=== PATIENT | female | born 1945 | race African-American/Black ===

== ENCOUNTER 2017-09-15 11:11 | Day surgery (SDC) | payer MEDICARE ==
[~2017-09-15] VITALS: Ht 151.1 cm; Wt 72.6 kg
[2017-09-15] VITALS (7 sets, daily range): BP systolic 111–128; BP diastolic 65–76
--- NOTE | 2017-09-15 07:16 | Pre-Procedure Note/Attestation ---
Pre-Procedure Note/Attestation Complete Prior to Procedure Planned Procedure: right Procedure Narrative: removal of cataract and placement of intraocular lens right eye Indications for Procedure Pre-Operative Diagnosis: Cataract, combined, right eye Attestation I attest that I discussed the nature of the procedure; its benefits; risks and complications; and alternatives (and the risks and benefits of such alternatives ), prior to the procedure, with the patient (or the patient's legal treasury representative). I attest that, if there was a reasonable possibility of needing a blood transfusion, the patient (or the patient's legal treasury representative) was given the [facility] standardized written summary, pursuant to the [place] Blood Safety Act ([place] Health and Safety Code # 1645, as amended). I attest that I re-evaluated the patient just prior to the surgery and that there has been no change in the patient's H&P, except as documented below: Jag Hackett MD Sep 15, 2017 07:16
[2017-09-15] MEDS ORDERED: Midazolam 2mg/2ml Inj ONE (11:12)
[2017-09-15] MEDS ORDERED: Sterile Water Irrig 1000ml IRRIG ONE (11:12)
[2017-09-15] MEDS ORDERED: LR 1000ml ONE (11:12)
[2017-09-15] MEDS ORDERED: NS Irrig 1000ml ONE (11:12)
[2017-09-15] MEDS ORDERED: fentaNYL 100 mcg/2 mL IV ONE (11:12)
[2017-09-15] MEDS ORDERED: Phenylephrine 10% Opth Soln 5ml ONE (11:46)
[2017-09-15] MEDS ORDERED: Cyclopentolate 1% Opth Sol 2ml ONE (11:46)
[2017-09-15] MEDS ORDERED: Vigamox Opth Soln 3ml ONE (11:46)
[2017-09-15] MEDS ORDERED: Akten 3.5% 1ml Btl ONE (11:47)
[2017-09-15] MEDS ORDERED: Tropicamide 1% Opth 15ml Soln ONE (11:47)
[2017-09-15] MEDS: Akten 3.5% 1ml Btl RIGHT EYE SCH ×3 (12:03→12:35)
[2017-09-15] MEDS: Tropicamide 1% Opth 15ml Soln RIGHT EYE SCH ×3 (12:04→12:35)
[2017-09-15] MEDS: Cyclopentolate 1% Opth Sol 2ml RIGHT EYE SCH ×3 (12:04→12:35)
[2017-09-15] MEDS: Phenylephrine 10% Opth Soln 5ml RIGHT EYE SCH ×3 (12:04→12:36)
[2017-09-15] MEDS: Vigamox Opth Soln 3ml RIGHT EYE SCH ×3 (12:04→12:36)
[2017-09-15] MEDS ORDERED: ATORVASTATIN CA20 MG ORAL (12:34)
[2017-09-15] MEDS ORDERED: METFORMIN HCL1000 M1 ORAL (12:34)
[2017-09-15] MEDS ORDERED: ASPIR 8181 MG ORAL (12:34)
[2017-09-15] MEDS ORDERED: BENAZEPRIL-HCT1 EACH ORAL (12:47)
[2017-09-15] MEDS ORDERED: VITAMIN D400 INTLU ORAL (12:47)
[2017-09-15] MEDS ORDERED: MAGNESIUM250 M2 PO (12:47)
--- NOTE | 2017-09-15 14:38 | Discharge Instructions ---
Discharge Instructions Discharge Instructions Follow Up Orders Wear eye shield at all times except to place eye drops Continue preop eye drops Followup tomorrow in Dr Hackett's office For Congestive Heart Failure Reminder Report to your physician any weight gain of 5 pounds or more in one week. Jag Hackett MD Sep 15, 2017 14:37
--- NOTE | 2017-09-15 14:51 | Brief Operative Note ---
Immediate Post Operative Note Operative Note Pre-op Diagnosis: Cataract, combined, right eye Procedure: Phaco Pc IOL OD Post-op Diagnosis: same as pre-op Surgeon: Prakash Hackett MD Additional Surgeons: none Anesthesiologist: Dr Qiu Anesthesia: local, MAC Specimen: none Complications: none Fluids: as noted Implant(s) used?: Yes - [employer] tecnis PCB00 21.5 Jag Hackett MD Sep 15, 2017 14:51
[2017-09-15] MEDS ORDERED: BSS 500ml btl ONE (15:18)
[2017-09-15] MEDS ORDERED: EPINEPHrine 1mg/1ml Amp ONE (15:19)
[2017-09-15] MEDS ORDERED: Lidocaine 2% MPF 5ml Vial INJ ONE (15:19)
[2017-09-15] MEDS ORDERED: Sodium Hyaluronate 10 mg/ml 0.85ml ONE (15:19)
[2017-09-15] MEDS ORDERED: BSS 15ml BTL ONE (15:19)
[2017-09-15] MEDS ORDERED: Pred Forte 1% Opth Susp 1ml ONE (15:19)
[2017-09-15] MEDS ORDERED: Maxitrol Opth Oint 3.5gm ONE (15:19)
[2017-09-15] MEDS ORDERED: Lidocaine 1% MPF 10mg/ml 5ml ONE (15:19)
[2017-09-15] MEDS ORDERED: Tetracaine 0.5% Opth 4ml Soln ONE (15:19)
[2017-09-15] MEDS ORDERED: Dexamethasone 4mg/ml vial ONE (15:19)
[2017-09-15] MEDS ORDERED: Povidone-Iodine 5% opth solution ONE (15:19)
--- NOTE | 2017-09-15 23:01 | Operative Note - Dictated ---
DATE OF OPERATION: 09/15/2017 SURGEON: Jag Hackett M.D. MAINTENANCE SHOP CLERK SURGEON: None. ANESTHESIOLOGIST: . ANESTHESIA: Local/standby/monitored anesthesia care. PREOPERATIVE DIAGNOSIS: Combined cataract, right eye. POSTOPERATIVE DIAGNOSIS: Combined cataract, right eye. PROCEDURE: 1. Phacoemulsification of cataract, right eye. 2. Placement of posterior chamber intraocular lens, right eye (model Lopez, Tecnis PCB00 21.5). SPECIMENS: None. COMPLICATIONS: None. INDICATIONS FOR SURGERY: The patient has had the painless progressive decrease in visual acuity in the right eye secondary to cataract. The patient understands the risks of surgery including infection, bleeding, need for further surgery, loss of vision, no improvement in vision, loss of the eye, loss of life, glaucoma, and retinal detachment, understands these risks and elects to proceed with surgery. FINDINGS: The patient had a +2 to 3 nuclear sclerotic cataract, but also a +2 to 3 anterior subcapsular cataract and a +1 cortical cataract. OPERATIVE NOTE: After informed consent was obtained, the patient was brought into the operating room and placed in the supine position. Cardiac and respiratory monitors were attached. A time-out was performed and all criteria were met and everyone in the room agreed. The right eye was then draped and prepped in a sterile manner for ocular surgery. A lid speculum was placed in the eye. The patient was moving her eye despite sedation, so a 6-0 silk suture was placed through the superior rectus muscle as a stay suture. A 1% lidocaine preservative-free was then injected at a the 9 o'clock limbus. A conjunctiva peritomy from approximately 8:30 to 9:30 was made and dissected posteriorly. Hemostasis was maintained with bipolar cautery and a 2.6 mm limbal incision was made centered approximately 3 o'clock and dissected anteriorly. Paracentesis was made at approximately 12 o'clock and Shugarcaine was injected into the anterior chamber followed by Healon. The anterior chamber was then entered using a 2.6 mm keratome through the limbal incision. An anterior capsulorrhexis was then performed. Hydrodissection and hydrodelineation of the lens was then performed. The lens was then phacoemulsified using divide and conquer four-quadrant technique. Residual cortical material was then aspirated. Healon was injected into the anterior chamber and capsular bag. The tip of the preloaded cartridge was placed through the limbal incision. The lens was injected into the capsular bag and centered nicely with a Sinskey hook. Both the optic and both haptics were visualized to be in the capsular bag and the lens was in the 180 degree meridian. Healon was then aspirated from the anterior chamber and capsular bag. One 10-0 nylon interrupted suture was then placed through the limbal incision and the knot was rotated and buried. Care was taken during the entire procedure not to touch the endothelium. The paracentesis and limbal wound were hydrated closed. The conjunctiva was then closed with forceps cautery. The lid speculum and drapes were removed from the eye and one drop of Betadine was placed in the eye along with Vigamox, one drop of moxifloxacin, and Pred Forte and then Maxitrol ointment and a shield. The patient tolerated the procedure well and left the operating room in awake, alert in stable condition. Jag Hackett M.D. DR: PIERRE JOB#: [id number] CC:
== END 2017-09-15 15:35 | disposition home or self-care (01) ==
LOC: SUR 11:11
DX: H25.11 Age-related nuclear cataract, right eye (principal); H25.031 Anterior subcapsular polar age-related cataract, right eye; H25.011 Cortical age-related cataract, right eye; I10 Essential (primary) hypertension; E78.5 Hyperlipidemia, unspecified; Z91.012 Allergy to eggs; Z91.011 Allergy to milk products; E11.9 Type 2 diabetes mellitus without complications; M19.90 Unspecified osteoarthritis, unspecified site
CPT/HCPCS: 66984; 82962; J0171; J1100; J2250; J3010; J7120; V2632; 94003; 94150

== ENCOUNTER 2017-12-22 09:06 | Day surgery (SDC) | payer MEDICARE ==
--- NOTE | 2017-12-21 23:53 | Pre-Procedure Note/Attestation ---
Pre-Procedure Note/Attestation Complete Prior to Procedure Planned Procedure: left - Removal of cataract and placement of intraocular lens , left eye Procedure Narrative: Removal of cataract and placement of intraocular lens, left eye Indications for Procedure Pre-Operative Diagnosis: Combined cataract, left eye Attestation I attest that I discussed the nature of the procedure; its benefits; risks and complications; and alternatives (and the risks and benefits of such alternatives ), prior to the procedure, with the patient (or the patient's legal front office representative). I attest that, if there was a reasonable possibility of needing a blood transfusion, the patient (or the patient's legal front office representative) was given the [place] [facility] standardized written summary, pursuant to the [place] Blood Safety Act ([place] Health and Safety Code # 1645, as amended). I attest that I re-evaluated the patient just prior to the surgery and that there has been no change in the patient's H&P, except as documented below: Jag Hackett MD Dec 21, 2017 23:53
[2017-12-22] VITALS (9 sets, daily range): BP systolic 121–143; BP diastolic 74–78
[~2017-12-22] VITALS: Ht 151.1 cm; Wt 73.9 kg
[~2017-12-22 09:06] MED LIST: ASPIR 8181 MG ORAL; ATORVASTATIN CA20 MG ORAL; BENAZEPRIL-HCT1 EACH ORAL; MAGNESIUM250 M2 PO; METFORMIN HCL1000 M1 ORAL; Pred Forte 1% Opth Susp 1ml LEFT EYE ONE; VITAMIN D400 INTLU ORAL
[2017-12-22] MEDS ORDERED: Pred Forte 1% Opth Susp 1ml ONE ×2 (09:38→10:14)
[2017-12-22] MEDS ORDERED: Akten 3.5% 1ml Btl ONE (09:38)
[2017-12-22] MEDS ORDERED: Cyclopentolate 1% Opth Sol 2ml ONE (09:38)
[2017-12-22] MEDS ORDERED: Ciprofloxacin Opth Soln 2.5ml ONE (09:38)
[2017-12-22] MEDS ORDERED: Phenylephrine 10% Opth Soln 5ml ONE (09:38)
[2017-12-22] MEDS ORDERED: Tropicamide 1% Opth 15ml Soln ONE (09:38)
[2017-12-22] MEDS: Ciprofloxacin Opth Soln 2.5ml LEFT EYE SCH ×3 (09:56→10:33)
[2017-12-22] MEDS: Akten 3.5% 1ml Btl LEFT EYE SCH ×3 (09:56→10:32)
[2017-12-22] MEDS: Tropicamide 1% Opth 15ml Soln LEFT EYE SCH ×3 (09:56→10:32)
[2017-12-22] MEDS: Cyclopentolate 1% Opth Sol 2ml LEFT EYE SCH ×3 (09:58→10:32)
[2017-12-22] MEDS: Phenylephrine 10% Opth Soln 5ml LEFT EYE SCH ×3 (09:59→10:32)
[2017-12-22] MEDS ORDERED: EPINEPHrine 1mg/1ml Amp ONE ×3 (10:13→10:35)
[2017-12-22] MEDS ORDERED: Lidocaine 4% Amp ONE (10:13)
[2017-12-22] MEDS ORDERED: Fluorescein Strips ONE (10:14)
[2017-12-22] MEDS ORDERED: Dexamethasone 4mg/ml vial ONE (10:14)
[2017-12-22] MEDS ORDERED: Lidocaine 1% MPF 10mg/ml 5ml ONE (10:14)
[2017-12-22] MEDS ORDERED: Timolol 0.5% Op Soln 2.5ml ONE (10:14)
[2017-12-22] MEDS ORDERED: Maxitrol Opth Oint 3.5gm ONE (10:14)
[2017-12-22] MEDS ORDERED: Carbachol 0.01% Op Soln 1.5ml vial ONE (10:14)
[2017-12-22] MEDS ORDERED: BSS 500ml btl ONE ×2 (10:15→10:19)
[2017-12-22] MEDS ORDERED: Bupivacaine 0.75% 30ml vial INJ ONE (10:16)
[2017-12-22] MEDS ORDERED: Povidone-Iodine 5% opth solution ONE (10:16)
[2017-12-22] MEDS ORDERED: Sodium Hyaluronate 10 mg/ml 0.85ml ONE ×2 (10:16→10:18)
[2017-12-22] MEDS ORDERED: BSS 15ml BTL ONE ×2 (10:16→10:18)
[2017-12-22] MEDS ORDERED: Tetracaine 0.5% Opth 4ml Soln ONE (10:16)
[2017-12-22 10:43] LABS: BASOPHILS % (AUTO) 0.7 % (0.0-2.0); EOSINOPHILS % (AUTO) 4.4 % (0.0-3.0); HEMATOCRIT 34.1 % (37.0-47.0); HEMOGLOBIN 10.9 G/DL (12.0-16.0); LYMPHOCYTES % (AUTO) 23.3 % (20.0-45.0); MEAN CORPUSCULAR VOLUME 78 FL (80-99); NEUTROPHILS % (AUTO) 60.6 % (45.0-75.0); PLATELET COUNT 331 K/UL (150-450); RED BLOOD COUNT 4.37 M/UL (4.20-5.40); RED CELL DISTRIBUTION WIDTH 14.7 % (11.6-14.8); WHITE BLOOD COUNT 5.9 K/UL (4.8-10.8)
[2017-12-22 10:49] LABS: ANION GAP 8 mmol/L (5-15); BLOOD UREA NITROGEN 12 mg/dL (7-18); CALCIUM 9.6 MG/DL (8.5-10.1); CARBON DIOXIDE 28 MMOL/L (21-32); CHLORIDE 105 MMOL/L (98-107); CREATININE 0.7 MG/DL (0.55-1.30); POTASSIUM 3.4 MMOL/L (3.5-5.1); SODIUM 141 MMOL/L (136-145)
[2017-12-22] MEDS ORDERED: fentaNYL 100 mcg/2 mL IV ONE (11:20)
[2017-12-22] MEDS ORDERED: Midazolam 2mg/2ml Inj ONE (11:20)
[2017-12-22] MEDS ORDERED: Propofol 200mg/20ml IV ONE (11:30)
[2017-12-22] MEDS ORDERED: NS Irrig 1000ml ONE (11:30)
[2017-12-22] MEDS ORDERED: Sterile Water Irrig 1000ml IRRIG ONE (11:30)
[2017-12-22] MEDS ORDERED: LR 1000ml ONE (11:30)
[2017-12-22] MEDS ORDERED: LR 1000ml 1,000 ML IVLG SCH (12:10)
--- NOTE | 2017-12-22 12:10 | Anethesia Preoperative Eval ---
Anesthesia Pre-op PMH/ROS General Date of Evaluation: Dec 22, 2017 Time of Evaluation: 11:20 Anesthesiologist: Radha ASA Score: ASA 3 Mallampati Score Class I : Soft palate, uvula, fauces, pillars visible Class II: Soft palate, uvula, fauces visible Class III: Soft palate, base of uvula visible Class IV: Only hard plate visible Mallampati Classification: Class II Surgeon: Roxann Diagnosis: L eye cataract Surgical Procedure: L eye cataract extraction Anesthesia History: none Social History: smoking - h/o Family History: no anesthesia problems Allergies: Coded Allergies: EGG (Verified Allergy, Unknown, 09/15/17) MILK (Verified Allergy, Unknown, 09/15/17) Medications: see eMAR Past Medical History Cardiovascular: Reports: HTN; Denies: CAD, [place], valve dz, arrhythmia, other Pulmonary: Denies: asthma, COPD, RYNE, other Gastrointestinal/Genitourinary: Reports: GERD - mild; Denies: CRI, ESRD, other Neurologic/Psychiatric: Denies: dementia, CVA, depression/anxiety, TIA, other Endocrine: Reports: DM - stable on pills; Denies: hypothyroidism, steroids, other HEENT: Reports: cataract (L), cataract (R); Denies: glaucoma, [place] (L), [place] (R), other Hematology/Immune: Denies: anemia, DVT, bleeding disorder, other Musculoskeletal/Integumentary: Reports: DJD; Denies: OA, RA, DDD, edema, other Other: other - overweight PMH Narrative: as above PSxH Narrative: R eye cataract Anesthesia Pre-op Phys. Exam Physician Exam Last Vital Signs Date Time Temp Pulse Resp B/P (MAP) Pulse Ox O2 Delivery O2 Flow Rate FiO2 12/22/17 10:54 98.1 62 20 136/74 99 Room Air 98.1 Constitutional: NAD Neurologic: CN 2-12 intact Cardiovascular: RRR, no M/R/G Respiratory: CTA Gastrointestinal: S/NT/ND Airway Exam Mallampati Score: Class II MO: full Neck: stiff ROM: limited Teeth: missing Dentures: no upper, no lower Anesthesia Pre-op A/P Labs Hematology Test 12/22/17 10:25 White Blood Count 5.9 K/UL (4.8-10.8) Red Blood Count 4.37 M/UL (4.20-5.40) Hemoglobin 10.9 G/DL (12.0-16.0) L Hematocrit 34.1 % (37.0-47.0) L Mean Corpuscular Volume 78 FL (80-99) L Mean Corpuscular Hemoglobin 24.9 PG (27.0-31.0) L Mean Corpuscular Hemoglobin Concent 31.9 G/DL (32.0-36.0) L Red Cell Distribution Width 14.7 % (11.6-14.8) Platelet Count 331 K/UL (150-450) Mean Platelet Volume 6.4 FL (6.5-10.1) L Neutrophils (%) (Auto) 60.6 % (45.0-75.0) Lymphocytes (%) (Auto) 23.3 % (20.0-45.0) Monocytes (%) (Auto) 11.0 % (1.0-10.0) H Eosinophils (%) (Auto) 4.4 % (0.0-3.0) H Basophils (%) (Auto) 0.7 % (0.0-2.0) Chemistry Test 12/22/17 10:25 Sodium Level 141 MMOL/L (136-145) Potassium Level 3.4 MMOL/L (3.5-5.1) L Chloride Level 105 MMOL/L (98-107) Carbon Dioxide Level 28 MMOL/L (21-32) Anion Gap 8 mmol/L (5-15) Blood Urea Nitrogen 12 mg/dL (7-18) Creatinine 0.7 MG/DL (0.55-1.30) Estimat Glomerular Filtration Rate > 60 mL/min (>60) Glucose Level 98 MG/DL (74-106) Calcium Level 9.6 MG/DL (8.5-10.1) Studies Pre-op Studies: EKG - NSR Risk Assessment & Plan Assessment: ASA 3 Plan: MAC Status Change Before Surgery: No Pre-Antibiotics Drug: none Thom Garcia MD Dec 22, 2017 12:10
[2017-12-22] MEDS ORDERED: fentaNYL 100 mcg/2 mL IV PRN (12:15)
[2017-12-22] MEDS ORDERED: DiphenhydrAMINE 50mg/ml Inj IVP PRN (12:15)
--- NOTE | 2017-12-22 12:40 | Discharge Instructions ---
Discharge Instructions Discharge Instructions Follow Up Orders Leave shield on at all times except to place eye drops Continue pre op eye drops Followup in Dr Hackett's office tomorrow For Congestive Heart Failure Reminder Report to your physician any weight gain of 5 pounds or more in one week. Jag Hackett MD Dec 22, 2017 12:40
--- NOTE | 2017-12-22 12:43 | Brief Operative Note ---
Immediate Post Operative Note Operative Note Pre-op Diagnosis: Combined cataract, left eye Procedure: Phaco PC IOL, OS Post-op Diagnosis: same as pre-op Surgeon: Prakash Hackett MD Anesthesiologist: Dr Garcia Anesthesia: local, MAC Specimen: none Complications: none Fluids: as noted in chart Implant(s) used?: Yes - tecnis zcb00 22.0 Jag Hackett MD Dec 22, 2017 12:43
--- NOTE | 2017-12-22 12:43 | Immediate Post-Op Evaluation ---
Immediate Post-Op Evalulation Immediate Post-Op Evalulation Procedure: L eye cataract extraction with IOL Date of Evaluation: Dec 22, 2017 Time of Evaluation: 12:42 IV Fluids: 300 Blood Products: none Estimated Blood Loss: none Urinary Output: none Blood Pressure Systolic: 159 Blood Pressure Diastolic: 75 Pulse Rate: 62 Respiratory Rate: 20 O2 Sat by Pulse Oximetry: 98 Temperature (Fahrenheit): 97.5 Pain Score (1-10): 2 Nausea: No Vomiting: No Complications none Patient Status: awake, patent, none Hydration Status: adequate Thom Garcia MD Dec 22, 2017 12:43
--- NOTE | 2017-12-22 13:38 | 48 Hour Post Anesthesia Eval ---
Post Anesthesia Evaluation Procedure: L eye cataract extraction with IOL Date of Evaluation: Dec 22, 2017 Time of Evaluation: 13:37 Blood Pressure Systolic: 132 0: 75 Pulse Rate: 64 Respiratory Rate: 20 Temperature (Fahrenheit): 97.6 O2 Sat by Pulse Oximetry: 98 Airway: patent Nausea: No Vomiting: No Pain Intensity: 1 Hydration Status: adequate Cardiopulmonary Status: stable Mental Status/LOC: patient returned to baseline Follow-up Care/Observations: n/a Post-Anesthesia Complications: none Follow-up care needed: ready to discharge Thom Garcia MD Dec 22, 2017 13:38
--- NOTE | 2017-12-22 17:16 | Operative Note - Dictated ---
DATE OF OPERATION: 12/22/2017 SURGEON: Jag Hackett M.D. TIRE MAINTENANCE TECHNICIAN SURGEON: None. ANESTHESIOLOGIST: Thom Garcia M.D. ANESTHESIA: Local/standby/monitored anesthesia care. PREOPERATIVE DIAGNOSIS: Cataract, combined, left eye. POSTOPERATIVE DIAGNOSIS: Cataract, combined, left eye. PROCEDURES: 1. Phacoemulsification of cataract, left eye. 2. Placement of posterior chamber intraocular lens, left eye (model Lopez Tecnis [id number], power 22.0). SPECIMENS: None. COMPLICATIONS: None. INDICATIONS FOR SURGERY: The patient has had the painless progressive decrease in visual acuity in left eye secondary to cataract. The patient understands the risks of surgery including infection, bleeding, need for further surgery, loss of vision, no improvement in vision, loss of the eye, loss of life, glaucoma, retinal detachment, and understands these risks and elects to proceed with surgery. FINDINGS: The patient had a +2 nuclear sclerotic cataract and a +2 to +3 cortical cataract that was also anterior subcapsular. OPERATIVE NOTE: After informed consent was obtained, the patient was brought into the operating room and placed in supine position. Cardiac and respiratory monitors were attached. A time-out was performed and all criteria were met and everyone in the room agreed. The left eye was then draped and prepped in a sterile manner for ocular surgery. A lid speculum was placed in the eye. A 1% lidocaine preservative-free was injected at the approximate 2 o'clock limbus. A conjunctiva peritomy from approximately 2 o'clock to 3 o'clock was made and dissected posteriorly. Hemostasis was maintained with bipolar cautery. A 2.6 mm limbal incision was made centered approximately 2:30 and dissected anteriorly. Paracentesis was made at approximately 5:30 and Shugarcaine was injected into the anterior chamber followed by Healon. The anterior chamber was then entered using a 2.6 mm keratome through the limbal incision. An anterior capsulorrhexis was then performed. Hydrodissection and hydrodelineation of the lens was then performed. The lens was then phacoemulsified using divide and conquer four-quadrant technique. Residual cortical material was then aspirated. Healon was injected into the anterior chamber capsular bag. The lens was taken from its package, placed into the cartridge, and the tip of the cartridge was placed through the limbal incision and the lens was injected into the capsular bag and centered nicely with a Sinskey hook. Healon was then aspirated from the anterior chamber capsular bag. A visual inspection of the lens revealed that both haptics were in the bag as well as the optic. The lens was in the 9:00 to 3:00 position. One 10-0 nylon interrupted suture was then placed through the limbal incision and the knot was rotated and buried. Care was taken during the entire procedure not to touch the endothelium. The wounds were checked and found to be watertight. The conjunctiva was then closed with forceps cautery. The lid speculum and drapes were removed from the eye and drops of Pred Forte and ciprofloxacin were applied to the eye followed by Maxitrol ointment and a shield. The patient tolerated the procedure well and left the operating room in awake, alert, and stable condition. Jag Hackett M.D. DR: CHANO JOB#: [id number] CC:
== END 2017-12-22 13:40 | disposition home or self-care (01) ==
LOC: SUR 09:06
DX: H25.12 Age-related nuclear cataract, left eye (principal); H25.012 Cortical age-related cataract, left eye; I10 Essential (primary) hypertension; K21.9 Gastro-esophageal reflux disease without esophagitis; E11.9 Type 2 diabetes mellitus without complications; Z87.891 Personal history of nicotine dependence; Z91.012 Allergy to eggs; Z91.011 Allergy to milk products
CPT/HCPCS: 36415; 66984; 80048; 82962; 85025; J0171; J1100; J2250; J2704; J3010; J7120; V2632; 94003; 94150